=== PATIENT | female | born 1950 | race Caucasian/White ===

== ENCOUNTER → 2017-02-09 | Outpatient (CLI) | payer BC ==
[2014-02-05 14:05] VITALS: BP 130/62
[~2017-02-09] MED LIST: ASPI-630 PO; HYDR12.58 PO; LISI10TA2 PO; MULT1TAB52 PO
--- NOTE | 2017-02-10 09:58 | RAD ---
DATE: 02/09/2017. EXAM: MAMMO NASREEN SCREENING BILATERAL. HISTORY: Routine mammographic screening. COMPARISON: 02/03/2016. This study was interpreted with the benefit of Computerized Aided Detection (CAD). FINDINGS: The breast parenchyma is heterogeneously dense, which could reduce sensitivity of mammography. Breast parenchyma level C.. There are no suspicious masses, microcalcifications or architectural distortion. Scattered calcifications are benign. The parenchymal pattern is stable. BI-RADS CATEGORY: 2 BENIGN FINDING(S). RECOMMENDED FOLLOW-UP: 12M 12 MONTH FOLLOW-UP. PQRS compliance statement: Patient information was entered into a reminder system with a target due date 02/09/2018 for the next mammogram. Mammography is a sensitive method for finding small breast cancers, but it does not detect them all and is not a substitute for careful clinical examination. A negative mammogram does not negate a clinically suspicious finding and should not result in delay in biopsying a clinically suspicious abnormality. "Our facility is accredited by the [employer] Mammography [employer]."
== END | disposition home or self-care (01) ==
LOC: MAMMO 13:53
PROVIDERS: ATTEND Obstetrics & Gynecology
DX: Z12.31 Encounter for screening mammogram for malignant neoplasm of breast (principal)
CPT/HCPCS: 77063; G0202; 77067

== ENCOUNTER → 2017-05-05 | Outpatient (CLI) | payer BC ==
[2014-02-05 14:05] VITALS: BP 130/62
[~2017-05-05] MED LIST changes: +IOHEXOL 300 MG/ML 75 ML VIAL. IV ONE
--- NOTE | 2017-05-05 10:39 | RAD ---
EXAM: CT abdomen/pelvis with and without contrast. HISTORY: Microscopic hematuria. TECHNIQUE: Computed tomography of the abdomen and pelvis was performed before and after the intravenous administration of iodinated contrast using a urography protocol. COMPARISON: None. FINDINGS: Lung windows through the visualized portions of the bases reveal a calcified granuloma in the left base. Bone windows reveal an ill-defined sclerotic lesion in L1, indeterminate but most likely benign in the absence of known malignancy. There is no nephroureterolithiasis. There is a subcentimeter cyst in the left kidney. There are no solid renal lesions. Urographic images reveal no tract urothelial lesions. The left ureter is mostly unopacified but otherwise unremarkable. There is a 180 degree kink in the right proximal ureter without obstruction. There are changes of pelvic floor relaxation. There is a small cystocele. A suggested nodule at the bladder base is likely from impression of the urethra in the setting of pelvic floor relaxation. There is mild bladder wall thickening in the setting of decompression. The liver, adrenal glands, spleen, gallbladder and pancreas are unremarkable. There are no pathologically enlarged lymph nodes. Note is made of a normal variant duplicated inferior vena cava. Stool throughout the colon is consistent with constipation. There is no obstruction IMPRESSION: 1. No suspicious renal or urothelial lesions. No nephroureterolithiasis. 2. Pelvic floor relaxation. A suggested nodule along the bladder base is likely from impression from the urethra in the setting of relaxation. Mild bladder wall thickening may reflect chronic outlet obstruction or inflammation. 3. Correlate for constipation. 4. An ill-defined sclerotic region in L1 is most likely benign in the absence of known malignancy. Correlation with older studies could assess stability. MRI follow-up could be considered only if there is ongoing concern. *One or more of the following individualized dose reduction techniques were utilized for this examination: 1. Automated exposure control. 2. Adjustment of the mA and/or kV according to patient size. 3. Use of iterative reconstruction technique.
== END | disposition home or self-care (01) ==
LOC: CT 09:32
PROVIDERS: ATTEND Physician Assistant
DX: R31.21 Asymptomatic microscopic hematuria (principal)
CPT/HCPCS: 74174; Q9967

== ENCOUNTER → 2018-02-21 | Outpatient (CLI) | payer BC, MEDICARE ==
[2014-02-05 14:05] VITALS: BP 130/62
[~2018-02-21] MED LIST changes: -IOHEXOL 300 MG/ML 75 ML VIAL. IV ONE
--- NOTE | 2018-02-22 09:40 | RAD ---
DATE: 02/21/2018 EXAM: MAMMO NASREEN SCREENING BILATERAL HISTORY: Routine screening COMPARISON: 02/09/2017 This study was interpreted with the benefit of Computerized Aided Detection (CAD). Breast Density: HETERO The breast parenchyma is heterogenously dense, which could reduce sensitivity of mammography. Breast parenchyma level C. FINDINGS: 2-D and 3-D tomosynthesis imaging was performed in CC and MLO projections. No new or enlarging breast densities are seen. Minimal benign type calcifications are noted. No suspicious microcalcifications have developed. IMPRESSION: Stable mammograms without evidence of malignancy. BI-RADS CATEGORY: 2 BENIGN FINDING(S) RECOMMENDED FOLLOW-UP: 12M 12 MONTH FOLLOW-UP PQRS compliance statement: Patient information was entered into a reminder system with a target due date for the next mammogram. Mammography is a sensitive method for finding small breast cancers, but it does not detect them all and is not a substitute for careful clinical examination. A negative mammogram does not negate a clinically suspicious finding and should not result in delay in biopsying a clinically suspicious abnormality. "Our facility is accredited by the [employer] Mammography [employer]."
== END | disposition home or self-care (01) ==
LOC: MAMMO 10:16
PROVIDERS: ATTEND Obstetrics & Gynecology
DX: Z12.31 Encounter for screening mammogram for malignant neoplasm of breast (principal)
CPT/HCPCS: 77063; 77067

== ENCOUNTER → 2019-02-22 | Outpatient (CLI) | payer BC, MEDICARE ==
[2014-02-05 14:05] VITALS: BP 130/62
--- NOTE | 2019-02-24 09:08 | RAD ---
DATE: February 22, 2019 EXAM: MAMMO NASREEN SCREENING BILATERAL HISTORY: Screening study. COMPARISON: 2016 and 2018 This study was interpreted with the benefit of Computerized Aided Detection (CAD). 2-D digital mammographic views of both breasts were performed in the CC and MLO projections. 3-D digital tomosynthesis images of both breasts were performed in the CC and MLO projections and reviewed on a computer workstation. FINDINGS: Breast Density: HETERO The breast parenchyma is heterogenously dense, which could reduce sensitivity of mammography. Breast parenchyma level C.. There are no dominant suspicious masses, suspicious microcalcifications or evidence of architectural distortion. IMPRESSION: No mammographic indicators for malignancy. BI-RADS CATEGORY: 1 NEGATIVE RECOMMENDED FOLLOW-UP: 12M 12 MONTH FOLLOW-UP PQRS compliance statement: Patient information was entered into a reminder system with a target due date February 24, 2020 for the next mammogram. Mammography is a sensitive method for finding small breast cancers, but it does not detect them all and is not a substitute for careful clinical examination. A negative mammogram does not negate a clinically suspicious finding and should not result in delay in biopsying a clinically suspicious abnormality. "Our facility is accredited by the [employer] Mammography [employer]." The patient's breast density may affect the ability of mammography to detect breast cancer. There are 4 categories of breast density, A, B, C and D. Breast density A means that most of the breast tissue is replaced with adipose tissue and therefore is not dense. Breast density B means that the breast tissue is mildly dense and scattered. Breast density C means that the breast tissue is heterogeneously dense. Breast density D means that the breast tissue is very dense. Breast densities especially C and D may decrease the sensitivity of mammography to detect breast cancer. Therefore, the patient may benefit from 3-D breast mammography (3D breast tomography) as a part of their screening mammogram. Insurance may or may not pay for this additional imaging. The patient's breast density based on today's mammogram is category C.
== END | disposition home or self-care (01) ==
LOC: MAMMO 10:06
PROVIDERS: ATTEND Obstetrics & Gynecology
DX: Z12.31 Encounter for screening mammogram for malignant neoplasm of breast (principal)
CPT/HCPCS: 77063; 77067

== ENCOUNTER → 2020-02-26 | Outpatient (CLI) | payer BC, MEDICARE ==
[2014-02-05 14:05] VITALS: BP 130/62
[~2020-02-26] MED LIST changes: +MULT-445 PO; -MULT1TAB52 PO
--- NOTE | 2020-02-26 16:19 | RAD ---
BILATERAL SCREENING MAMMOGRAM, 3-D History: Routine screening. Comparison: 02/22/2019, 02/21/2018, 02/09/2017, 02/03/2016, 01/07/2015, 01/01/2014. Technique: MLO and CC digital tomosynthesis (3D) images obtained. Radiologist reviewed these images on dedicated workstation. Findings: Breast Tissue Density C : The breasts are heterogeneously dense, which may obscure small masses. There are no dominant masses, suspicious microcalcifications, or architectural distortion. Right supra-areolar asymmetry is noted. This may represent summation of breast parenchyma however. IMPRESSION: Right supra-areolar asymmetry. Spot compression recommended. Ultrasound may be needed. BI-RADS Category 0: Incomplete: Need additional imaging evaluation. The images were reviewed with computer-aided detection. Patient information is entered into reminder system with a target due date for the next screening mammogram. Mammography is the most sensitive method for finding small breast cancers, but it does not detect them all and is not a substitute for careful clinical examination. A negative mammogram does not negate a clinically suspicious finding and should not result in delay in biopsying a clinically suspicious abnormality. "Our facility is accredited by the [employer] Mammography [employer]." Electronically signed by: Robin Marie MD (02/26/2020 4:15 PM) [id number]
== END ==
LOC: MAMMO 10:12
PROVIDERS: ATTEND Obstetrics & Gynecology
DX: Z12.31 Encounter for screening mammogram for malignant neoplasm of breast (principal)
CPT/HCPCS: 77063; 77067

== ENCOUNTER → 2020-03-12 | Outpatient (CLI) | payer BC, MEDICARE ==
[2014-02-05 14:05] VITALS: BP 130/62
--- NOTE | 2020-03-13 16:17 | RAD ---
Examination: Right digital diagnostic mammogram. INDICATION: 69-year-old woman recalled from screening for right breast supra-areolar asymmetry. COMPARISON: 02/22/2019 and 02/26/2020 screening mammograms. TECHNIQUE: Full field right ML view was obtained and reviewed with computer-aided detection in additi on to a spot compression MLO view. The full field images were acquired with 2-D and 3-D technique. FINDINGS: Heterogeneously dense breast parenchyma. The questioned asymmetry in the superior right breast did not persist on additional imaging. IMPRESSION: Negative right diagnostic mammogram. No evidence of malignancy BI-RADS Category 1 Negative Recommend return to routine screening next due in one year. Patient entered into a reminder system with targeted due date for next mammogram. Electronically signed by: Xavier Jeffries MD (03/13/2020 4:14 PM) [id number]
== END ==
LOC: MAMMO 14:45
PROVIDERS: ATTEND Obstetrics & Gynecology
DX: R92.2 Inconclusive mammogram (principal)
CPT/HCPCS: 77065

== ENCOUNTER → 2021-02-27 | Outpatient (CLI) | payer BC ==
[2014-02-05 14:05] VITALS: BP 130/62
[~2021-02-27] MED LIST changes: +LISI10TA16 PO; -LISI10TA2 PO
--- NOTE | 2021-02-27 13:31 | RAD ---
BILATERAL DIGITAL SCREENING 2-D AND 3-D MAMMOGRAM INDICATION: Routine screening. COMPARISON: February 26, 2020, February 22, 2019, February 21, 2018 Interpretation was made using CAD. FINDINGS: Breast Density: The breasts are heterogeneously dense, which may obscure small masses. RIGHT BREAST: No suspicious masses, calcifications or areas of architectural distortion are seen. LEFT BREAST: Calcifications are seen in the left breast near the 12:00 location, 6 cm from the nipple within the middle to posterior depth. There may be an associated mass. No architectural distortion i s identified. IMPRESSION: 1. Indeterminate calcifications with possible mass in the left breast. Additional diagnostic imaging is recommended. Ultrasound may also be necessary. 2. Stable right mammogram with no imaging evidence of malignancy. ASSESSMENT: BI-RADS 0. Incomplete assessment. Additional imaging is recommended. The facility will no tify the patient of the need to return for additional imaging. RECOMMENDATION: Left diagnostic mammogram and possible left breast ultrasound. The facility will noti fy the patient of the results via mail. Patient information will be entered into the mammography robert nder system with a target recall date for the next mammogram. A reminder letter will be generated by the facility. Electronically signed by: Rica Black MD (02/27/2021 1:28 PM) [id number]
== END ==
LOC: MAMMO 09:09
PROVIDERS: ATTEND Family Medicine
DX: Z12.31 Encounter for screening mammogram for malignant neoplasm of breast (principal)
CPT/HCPCS: 77063; 77067

== ENCOUNTER → 2021-03-18 | Outpatient (CLI) | payer BC ==
[2014-02-05 14:05] VITALS: BP 130/62
--- NOTE | 2021-03-18 15:46 | RAD ---
EXAM: 1. Unilateral digital diagnostic mammography, left. 2. Left breast ultrasound. HISTORY: Calcifications and possible mass on mammographic screening. Additional imaging is requested. TECHNIQUE: Left full field digital images were obtained in CC and MLO magnification projections. Comp uter-aided detection was applied. Left breast ultrasound was also performed. COMPARISON: 02/27/2021, 03/12/2020, 02/21/2018. COMPOSITION: B. There are scattered areas of fibroglandular density. FINDINGS: The calcifications of concern do not appear clustered on the CC projection. This suggested cluster on the MLO projection is likely from superimposition with scattered and vascular calcificatio ns elsewhere. There is no clear associated mass. Today's ultrasound reveals no mass or other suspicious finding. Left axillary lymph nodes appear purvi gn. BI-RADS CATEGORY 2: Benign. RECOMMENDATION: 1. Ongoing attention to left breast calcifications is recommended when the patient returns in one yea r. If mammography demonstrates dense breast tissue (heterogenously dense or extremely dense, category C or D), which could hide abnormalities, and if other risk factors for breast cancer have been identifi ed, supplemental screening tests that may be suggested by the ordering physician may be of benefit. D ense breast tissue, in and of itself, is a relatively common condition. Therefore, this information i s not provided to cause undue concern, but rather to raise awareness and to promote discussion with t he referring physician regarding the presence of other risk factors, in addition to dense breast tiss ue. The results of this mammography examination is provided to the patient and referring physician. T he patient should contact their referring physician if any questions or concerns exist regarding this report. PQRS compliance statement - Patient information was entered into a reminder system with a target due date for the next mammogram. "Our facility is accredited by the [employer] Mammography [employer]." Electronically signed by: Mohsen Lynch MD (03/18/2021 3:43 PM) [email or web address]
== END ==
LOC: MAMMO 14:02
PROVIDERS: ATTEND Family Medicine
DX: R92.2 Inconclusive mammogram (principal)
CPT/HCPCS: 76642; 77065